=== PATIENT | female | born 1985 | race Caucasian/White ===

== ENCOUNTER 2017-01-07 13:22 | Emergency (ER) | payer SELFPAY | END 2017-01-07 15:06 | disposition home or self-care (01) | LOC: D.ER 13:22 | DX: L02.31 Cutaneous abscess of buttock (principal) ==

== ENCOUNTER → 2018-08-10 10:21 | Outpatient (CLI) | payer MEDICAID | END | disposition home or self-care (01) | LOC: D.MRI 10:21 | PROVIDERS: ATTEND Clinical Nurse Specialist Family Health | DX: M79.642 Pain in left hand (principal) ==